=== PATIENT | male | born 1965 ===

== ENCOUNTER 2019-04-28 19:58 | Emergency (ER) | payer OTHER, SELFPAY ==
[2019-04-28] MEDS ORDERED: Morphine 4 MG/ML VIAL ONE (20:47)
[2019-04-28] MEDS ORDERED: Ketorolac Tromethamine 30 MG/ML VIAL ONE (20:47)
--- NOTE | 2019-04-28 21:02 | RAD ---
XR Chest 1 View Portable HISTORY: Fall, chest pain, right shoulder pain COMPARISON: None FINDINGS: The heart size is normal. The lungs are well expanded without focal areas of consolidation, pneumothorax or pleural effusions. There are fractures of the right third fourth and fifth ribs.
--- NOTE | 2019-04-28 21:07 | RAD ---
RIGHT SHOULDER THREE VIEWS: 04/28/19 HISTORY: Fall. Right shoulder pain. FINDINGS: There are fractures involving the right third, fourth, and fifth ribs. No fracture or dislocation is seen involving the bones or the shoulder. There are degenerative changes in the acromioclavicular herminio nt. IMPRESSION: Right rib fractures. POS: OFF
--- NOTE | 2019-04-28 21:11 | CT ---
CT BRAIN WITHOUT CONTRAST: HISTORY: Fall, headache FINDINGS: No evidence of acute infarct, hemorrhage, midline shift or abnormal extra-axial fluid collections is seen. The ventricular size is appropriate and the basilar cisterns are patent. The bony calvarium is intact. 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 The visualized paranasal sinuses and mastoid air cells are well aerated. IMPRESSION: No CT evidence of acute intracranial process.
== END 2019-04-28 21:50 | disposition home or self-care (01) ==
LOC: ERS 19:58
DX: S22.41XA Multiple fractures of ribs, right side, initial encounter for closed fracture (principal); S02.5XXA Fracture of tooth (traumatic), initial encounter for closed fracture; S40.011A Contusion of right shoulder, initial encounter; M10.9 Gout, unspecified; W20.8XXA Other cause of strike by thrown, projected or falling object, initial encounter; Y99.0 Civilian activity done for income or pay
CPT/HCPCS: 70450; 71045; 96372; 96374; J1885; J2270